=== PATIENT | male | born 1995 | race Caucasian/White ===

== ENCOUNTER 2018-09-21 15:49 | Emergency (ER) | payer OTHER ==
[~2018-09-21] VITALS: Ht 180.3 cm; Wt 74.8 kg
--- NOTE | 2018-09-21 17:08 | NUR ---
Dr Reyna at the bedside for MSE.
[2018-09-21] MEDS ORDERED: IBUPROFEN 800 MG TABLET PO ONE (17:15)
[2018-09-21] MEDS ORDERED: IBUPROFEN 800 MG TABLET ONE (17:16)
[2018-09-21 18:39] VITALS: BP 112/60
--- NOTE | 2018-09-21 18:40 | NUR ---
Patient discharged to home in stable conditon. Written and verbal after care instructions given. Patient verbalizes understanding of instructions.
== END 2018-09-21 18:40 | disposition home or self-care (01) ==
LOC: ER 15:49
DX: S80.02XA Contusion of left knee, initial encounter (principal); R07.81 Pleurodynia; R51 Headache; V49.49XA Driver injured in collision with other motor vehicles in traffic accident, initial encounter; Y93.89 Activity, other specified; Y92.89 Other specified places as the place of occurrence of the external cause; Y99.8 Other external cause status
CPT/HCPCS: 70450; 71045; 72125; A4663